=== PATIENT | female | born 1970 | race Caucasian/White ===

== ENCOUNTER 2021-08-08 15:55 | Emergency (ER) | payer OTHER ==
[2021-08-08] MEDS ORDERED: Sodium Chloride 0.9% 10 ML Syringe FLUSH PRN (16:09)
[2021-08-08] MEDS ORDERED: Ketorolac 30 MG/ML SDV IVPUSH ONE (16:09)
[2021-08-08] MEDS ORDERED: Ondansetron 4 MG/2 ML SDV IVPUSH ONE (16:09)
[2021-08-08] MEDS ORDERED: Sodium Chloride 0.9% 1,000 ML IV SCH (17:15)
[2021-08-08] MEDS ORDERED: Iopamidol 755 Mg/ML 75 ML Bottle IV ONE (18:06)
--- NOTE | 2021-08-08 18:42 | EDM.PDOC ---
ED HPI GENERAL MEDICAL PROBLEM - General Chief Complaint: General Stated Complaint: COVID Time Seen by Provider: 08/08/21 16:35 Source of Information: Reports: Patient History Limitations: Reports: No Limitations - History of Present Illness INITIAL COMMENTS - FREE TEXT/NARRATIVE: 07/31- headache,muscle ache,fever,chills,sore throat and cough 08/04- N/V/D abdominal cramping, dyspnea and productive cough of yellowish phlegm Generalized Pain Score (Numeric/FACES): 8 - Related Data Allergies Allergy/AdvReac Type Severity Reaction Status Date / Time No Known Allergies Allergy Verified 08/08/21 18:06 Home Meds: Home Meds Ibuprofen 800 mg PO TID PRN #30 tablet 08/08/21 [Rx] Ondansetron [Zofran ODT] 4 mg PO Q4H PRN #7 tab.dis 08/08/21 [Rx] Past Medical History - Past Health History Medical/Surgical History: Denies Medical/Surgical History - Infectious Disease History Infectious Disease History: Reports: Novel Coronavirus Social & Family History - Family History Family Medical History: No Pertinent Family History - Tobacco Use Tobacco Use Status *Q: Never Tobacco User - Caffeine Use Caffeine Use: Reports: None ED ROS GENERAL - Review of Systems Review Of Systems: See Below Constitutional: Reports: Fever, Chills, Malaise, Weakness HEENT: Reports: No Symptoms Respiratory: Reports: Shortness of Breath, Cough, Sputum Cardiovascular: Reports: No Symptoms Endocrine: Reports: No Symptoms GI/Abdominal: Reports: Abdominal Pain, Diarrhea, Nausea, Vomiting : Reports: No Symptoms Musculoskeletal: Reports: No Symptoms Skin: Reports: No Symptoms Neurological: Reports: No Symptoms ED EXAM, GENERAL - Physical Exam Exam: See Below Exam Limited By: No Limitations General Appearance: Alert, No Apparent Distress Ears: Normal External Exam, Normal Canal Nose: Normal Inspection, Normal Mucosa, No Blood Throat/Mouth: Normal Inspection, Normal Lips, Normal Teeth Head: Atraumatic, Normocephalic Neck: Normal Inspection, Supple, Non-Tender, Full Range of Motion Respiratory/Chest: No Respiratory Distress, Lungs Clear, Normal Breath Sounds, No Accessory Muscle Use, Chest Non-Tender Cardiovascular: Normal Peripheral Pulses, Regular Rate, Rhythm, No Edema, No JVD, No Murmur GI/Abdominal: Normal Bowel Sounds, Soft, Non-Tender, No Organomegaly, No Distention, No Abnormal Bruit Back Exam: Normal Inspection, Full Range of Motion Extremities: Normal Inspection, Normal Range of Motion, Non-Tender, No Pedal Edema, Normal Capillary Refill Neurological: Alert, Oriented, CN II-XII Intact, Normal Cognition, Normal Gait, Normal Reflexes, No Motor/Sensory Deficits Psychiatric: Normal Affect Course - Vital Signs Text/Narrative:: Lab/Chest CT result was reviewed and discussed with patient NS 1 bolus Toradol 30 mg IV x1 Zofran 4 mg IV x1 Last Recorded V/S: Last Vital Signs Temp 36.7 C 08/08/21 16:33 Pulse 89 08/08/21 16:33 Resp 16 08/08/21 16:33 BP 107/72 08/08/21 16:33 Pulse Ox 98 08/08/21 16:33 - Orders/Labs/Meds Orders: Active Orders 24 hr Category Date Time Status Ang Chest [CT] Stat Exams 08/08/21 17:51 Taken Sodium Chloride 0.9% [Normal Saline] 1,000 ml Med 08/08/21 17:15 Active IV ASDIRECTED Sodium Chloride 0.9% [Saline Flush] Med 08/08/21 16:09 Active 10 ml FLUSH ASDIRECTED PRN Saline Lock Insert [OM.PC] Routine Oth 08/08/21 16:09 Ordered Medication Orders Sodium Chloride (Normal Saline) 1,000 mls @ 999 mls/hr IV ASDIRECTED ERIC Last Admin: 08/08/21 17:10 Dose: 999 mls/hr Documented by: JAYDA Sodium Chloride (Sodium Chloride 0.9% 10 Ml Syringe) 10 ml FLUSH ASDIRECTED PRN PRN Reason: Keep Vein Open Last Admin: 08/08/21 16:28 Dose: 10 ml Documented by: JAYDA Labs: Laboratory Tests 08/08/21 08/08/21 08/08/21 Range/Units 16:45 16:45 16:45 WBC 3.4 (3.0-10.3) x10-3/uL RBC 4.36 (3.60-5.20) x10(6)uL Hgb 13.1 (11.4-15.5) g/dL Hct 39.3 (34.2-48.2) % MCV 90.2 (76.7-100.5) fL MCH 30.2 (23.9-33.9) pg MCHC 33.4 (31.9-34.8) g/dL RDW 12.6 (12.3-16.5) % Plt Count 123 L (151-488) x10(3)uL MPV 9.5 (7.1-12.4) fL Neut % (Auto) 67.6 (30.8-76.2) % Lymph % (Auto) 25.4 (18.4-52.1) % [place] % (Auto) 6.4 (4.4-15.7) % Eos % (Auto) 0.1 L (0.6-8.1) % Baso % (Auto) 0.5 (0.2-1.5) % Neut # (Auto) 2.3 (1.5-6.3) x10-3/uL Lymph # (Auto) 0.9 L (1.0-4.4) x10-3/uL [place] # (Auto) 0.2 L (0.3-1.0) x10-3/uL Eos # (Auto) 0.0 (0.0-0.8) x10-3/uL Baso # (Auto) 0.0 (0.0-0.1) x10-3/uL D-Dimer, Quantitative 0.77 H (0.0-0.59) mg/LFEU Sodium 135 (135-145) mmol/L Potassium 3.9 (3.5-5.3) mmol/L Chloride 101 (100-110) mmol/L Carbon Dioxide 24 (21-32) mmol/L BUN 6 L (7-18) mg/dL Creatinine 0.8 (0.55-1.02) mg/dL Est Cr Clr Drug Dosing 66.54 mL/min Estimated GFR (MDRD) > 60 (>60) BUN/Creatinine Ratio 7.5 L (9-20) Glucose 104 (80-116) mg/dL Calcium 7.6 L (8.6-10.2) mg/dL Total Bilirubin 0.3 (0.1-1.3) mg/dL AST 35 H (5-25) IU/L ALT 40 H (12-36) U/L Alkaline Phosphatase 77 (56-112) IU/L Troponin I (4.0-60.3) pg/mL NT-Pro-B Natriuret Pep (<=125) pg/mL Total Protein 6.2 (6.0-8.0) g/dL Albumin 2.9 L (3.5-5.2) g/dL Globulin 3.3 g/dL Albumin/Globulin Ratio 0.9 11/15/21 Range/Units 16:45 WBC (3.0-10.3) x10-3/uL RBC (3.60-5.20) x10(6)uL Hgb (11.4-15.5) g/dL Hct (34.2-48.2) % MCV (76.7-100.5) fL MCH (23.9-33.9) pg MCHC (31.9-34.8) g/dL RDW (12.3-16.5) % Plt Count (151-488) x10(3)uL MPV (7.1-12.4) fL Neut % (Auto) (30.8-76.2) % Lymph % (Auto) (18.4-52.1) % [place] % (Auto) (4.4-15.7) % Eos % (Auto) (0.6-8.1) % Baso % (Auto) (0.2-1.5) % Neut # (Auto) (1.5-6.3) x10-3/uL Lymph # (Auto) (1.0-4.4) x10-3/uL [place] # (Auto) (0.3-1.0) x10-3/uL Eos # (Auto) (0.0-0.8) x10-3/uL Baso # (Auto) (0.0-0.1) x10-3/uL D-Dimer, Quantitative (0.0-0.59) mg/LFEU Sodium (135-145) mmol/L Potassium (3.5-5.3) mmol/L Chloride (100-110) mmol/L Carbon Dioxide (21-32) mmol/L BUN (7-18) mg/dL Creatinine (0.55-1.02) mg/dL Est Cr Clr Drug Dosing mL/min Estimated GFR (MDRD) (>60) BUN/Creatinine Ratio (9-20) Glucose (80-116) mg/dL Calcium (8.6-10.2) mg/dL Total Bilirubin (0.1-1.3) mg/dL AST (5-25) IU/L ALT (12-36) U/L Alkaline Phosphatase (56-112) IU/L Troponin I 5.0 (4.0-60.3) pg/mL NT-Pro-B Natriuret Pep 34 (<=125) pg/mL Total Protein (6.0-8.0) g/dL Albumin (3.5-5.2) g/dL Globulin g/dL Albumin/Globulin Ratio Meds: Medications Generic Name Dose Route Start Last Admin Trade Name Freq PRN Reason Stop Dose Admin Sodium Chloride 1,000 mls @ 999 mls/hr 08/08/21 17:15 08/08/21 17:10 Normal Saline IV 999 mls/hr ASDIRECTED ERIC Administration Sodium Chloride 10 ml 08/08/21 16:09 08/08/21 16:28 Sodium Chloride 0.9% 10 Ml Syringe FLUSH 10 ml ASDIRECTED PRN Administration Keep Vein Open Discontinued Medications Generic Name Dose Route Start Last Admin Trade Name Freq PRN Reason Stop Dose Admin Iopamidol 75 ml 08/08/21 18:06 08/08/21 18:24 Iopamidol 755 Mg/Ml 75 Ml Bottle IV 08/08/21 18:07 75 ml ONETIME ONE Administration Ketorolac Tromethamine 30 mg 08/08/21 16:09 08/08/21 16:27 Ketorolac 30 Mg/Ml Sdv IVPUSH 08/08/21 16:10 30 mg ONETIME ONE Administration Ondansetron HCl 4 mg 08/08/21 16:09 08/08/21 16:27 Ondansetron 4 Mg/2 Ml Sdv IVPUSH 08/08/21 16:10 4 mg ONETIME ONE Administration Departure - Departure Time of Disposition: 19:35 Disposition: Home, Self-Care 01 Condition: Good Clinical Impression: Pneumonia due to COVID-19 virus, COVID-19 virus infection - Discharge Information Prescriptions: Ibuprofen 800 mg PO TID PRN #30 tablet PRN Reason: Pain Ondansetron [Zofran ODT] 4 mg PO Q4H PRN #7 tab.dis PRN Reason: Nausea Instructions: 10 Things You Can Do to Manage Your COVID-19 Symptoms at Home - [facility] (04/08/2021) Referrals: Lucinda Reeder NP [Primary Care Provider] - Forms: ED Department Discharge Additional Instructions: Please read discharge instructions on Covid infection and pneumonia Drink 2 liters of water daily Zofran ODT 4 mg every 4 hours as needed for nausea Ibuprofen 800 mg with tylenol 1000 mg every 8 ours as needed for fever,chills,body ache Take 1 tablet daily of Vit C,D and Zinc Call your clinic doctor and ask for a monoclonal antibody infusion if want it Sepsis Event Note (ED) - Focused Exam Vital Signs: Vital Signs Temp Pulse Resp BP Pulse Ox 08/08/21 16:33 36.7 C 89 16 107/72 98 - My Orders Last 24 Hours: My Active Orders 08/08/21 16:09 Sodium Chloride 0.9% [Saline Flush] 10 ml FLUSH ASDIRECTED PRN Saline Lock Insert [OM.PC] Routine 08/08/21 17:15 Sodium Chloride 0.9% [Normal Saline] 1,000 ml IV ASDIRECTED 08/08/21 17:51 Ang Chest [CT] Stat - Assessment/Plan Last 24 Hours: My Active Orders 08/08/21 16:09 Sodium Chloride 0.9% [Saline Flush] 10 ml FLUSH ASDIRECTED PRN Saline Lock Insert [OM.PC] Routine 08/08/21 17:15 Sodium Chloride 0.9% [Normal Saline] 1,000 ml IV ASDIRECTED 08/08/21 17:51 Ang Chest [CT] Stat
== END 2021-08-08 19:45 | disposition home or self-care (01) ==
LOC: FB.ED 15:55
DX: U07.1 COVID-19 (principal); J12.82 Pneumonia due to coronavirus disease 2019
CPT/HCPCS: 36415; 71275; 80053; 83880; 84484; 85025; 85379; 96374; 96375; 99284; J1885; J2405; J7030; Q9967